=== PATIENT | female | born 1930 | race Caucasian/White ===

== ENCOUNTER 2017-02-22 21:47 | Emergency (ER) | payer OTHER, MEDICARE ==
[2017-02-22 21:53] VITALS: TEMP 97.9
[2017-02-22] MEDS ORDERED: FLUCONAZOLE 150 MG TAB PO ONE (22:23)
--- NOTE | 2017-02-22 22:23 | EDPHY ---
H & P Stated Complaint: pain with urination and unable to urinate- last void @1630 Time Seen by Provider: 02/22/17 22:05 HPI/ROS: CHIEF COMPLAINT: Urinary tract infection HISTORY OF PRESENT ILLNESS: The patient is an 87-year-old female who comes to the emergency department complaining of dysuria and urinary retention. She states that she has had dysuria for about a week and started ciprofloxacin 3 days ago. She has not had a fever or flank pain. No nausea vomiting. No diarrhea. The patient has not had any improvement in her symptoms. Today she has been able to urinate since this afternoon. She felt slightly distended and crampy. REVIEW OF SYSTEMS: Constitutional: denies: chills, fever, recent illness, recent injury EENTM: denies: blurred vision, double vision, nose congestion Respiratory: denies: cough, shortness of breath Cardiac: denies: chest pain, irregular heart rate, lightheadedness, palpitations Gastrointestinal/Abdominal: denies: abdominal pain, diarrhea, nausea, vomiting, blood streaked stools Genitourinary: See HPI Musculoskeletal: denies: joint pain, muscle pain Skin: denies: lesions, rash, jaundice, bruising Neurological: denies: headache, numbness, paresthesia, tingling, dizziness, weakness Hematologic/Lymphatic: denies: blood clots, easy bleeding, easy bruising Immunologic/allergic: denies: HIV/AIDS, transplant EXAM: GENERAL: Well-appearing, well-nourished and in no acute distress. HEAD: Atraumatic, normocephalic. EYES: Pupils equal round and reactive to light, extraocular movements intact, sclera anicteric, conjunctiva are normal. ENT: TMs normal, nares patent, oropharynx clear without exudates. Moist mucous membranes. NECK: Normal range of motion, supple without lymphadenopathy or JVD. LUNGS: Breath sounds clear to auscultation bilaterally and equal. No wheezes rales or rhonchi. HEART: Regular rate and rhythm without murmurs, rubs or gallops. ABDOMEN: Soft, nontender, normoactive bowel sounds. No guarding, no rebound. No masses appreciated. : Minor excoriated rash around urethra. Mild prolapse, fecal material near vagina BACK: No CVA tenderness, no spinal tenderness, step-offs or deformities EXTREMITIES: Normal range of motion, no pitting or edema. No clubbing or cyanosis. NEUROLOGICAL: Cranial nerves II through XII grossly intact. Normal speech, normal gait. 5/5 strength, normal movement in all extremities, normal sensation PSYCH: Normal mood, normal affect. SKIN: Warm, dry, normal turgor, no visible rashes or lesions. Source: Patient Exam Limitations: No limitations - Personal History Current Tetanus/Diphtheria Vaccine: Yes Current Tetanus Diphtheria and Acellular Pertussis (TDAP): Yes Tetanus Vaccine Date: 2011 - Medical/Surgical History Hx Asthma: No Hx Chronic Respiratory Disease: No Hx Diabetes: Yes Hx Cardiac Disease: Yes Hx Renal Disease: No Hx Cirrhosis: No Hx Alcoholism: No Hx HIV/AIDS: No Hx Splenectomy or Spleen Trauma: No Other PMH: medical- DM, HTN, HLD, osteoperosis, chronic back pain, macular degeneration. surgical- appy, LEFT Femur ORIF; LEFT TKA, B hip pain - Social History Smoking Status: Former smoker Alcohol Use: Sober Drug Use: None Constitutional: Initial Vital Signs Temperature (C) 36.6 C 02/22/17 21:49 Heart Rate 91 02/22/17 21:49 Respiratory Rate 16 02/22/17 21:49 Blood Pressure 180/93 H 02/22/17 21:49 O2 Sat (%) 94 02/22/17 21:49 O2 Delivery Mode Room Air Allergies/Adverse Reactions: levofloxacin [From Levaquin] Allergy (Verified 01/06/16 21:20) Hives Penicillins Allergy (Verified 01/06/16 21:20) Hives Home Medications: Medication Instructions Recorded Benazepril HCl [Lotensin (*)] 20 mg PO BID 11/15/13 amLODIPine BESYLATE [Norvasc 2.5 2.5 mg PO BID 11/15/13 mg (*)] metFORMIN HCL [Glucophage 500 mg 500 mg PO BIDMEAL 11/15/13 (*)] Famotidine [Pepcid 20 MG (*)] 20 mg PO DAILY 04/02/14 Marya 123 1 drop EACHEYE BID 11/05/14 Pregabalin [Lyrica 75mg (*)] 75 mg PO HS 11/05/14 Acetaminophen [Tylenol 325mg (*)] 650 mg PO Q4 PRN #0 tab 03/28/15 Flexeril 01/06/16 Losartan Potassium 01/06/16 Norvasc 01/06/16 Prozac 20 MG (RX) 01/06/16 Cephalexin [Keflex] 500 mg PO Q6H #28 cap 01/07/16 Cephalexin [Keflex] 500 mg PO TID #21 cap 02/22/17 Medical Decision Making ED Course/Re-evaluation: We discussed the lab results. The patient has a slight prolapse of her urethra. This mixed with the infection is likely causing obstruction. Will leave the Petty catheter in place until she follows up with her primary on Saturday. We discussed indications for returning to the emergency department. We also discussed hygiene. Differential Diagnosis: Partial list of the Differential diagnosis considered include but were not limited to; urinary tract infection, urethral prolapse, yeast infection and although unlikely based on the history and physical exam, I also considered kidney infection, kidney stone, trauma, abscess. I discussed these differential diagnoses and the plan with the patient as well as the usual and expected course. The patient understands that the diagnosis is provisional and that in medicine we are not always correct and that further workup is often warranted. Usual and customary warnings were given. All of the patient's questions were answered. The patient was instructed to return to the emergency department should the symptoms at all worsen or return, otherwise to followup with the physician as we discussed. - Data Points Laboratory Results: 02/22/17 22:15 Urine Color YELLOW Urine Appearance HAZY Urine pH 6.0 (5.0-7.5) Ur Specific Banks 1.013 (1.002-1.030) Urine Protein 1+ H (NEGATIVE) Urine Ketones NEGATIVE (NEGATIVE) Urine Blood 1+ H (NEGATIVE) Urine Nitrate NEGATIVE (NEGATIVE) Urine Bilirubin NEGATIVE (NEGATIVE) Urine Urobilinogen 2.0 EU H EU (0.2-1.0) Ur Leukocyte Esterase 3+ H (NEGATIVE) Urine RBC 50-182 /hpf H /hpf (0-3) Urine WBC 50-182 /hpf H /hpf (0-3) Ur Epithelial Cells NONE SEEN /lpf /lpf (NONE-1+) Urine Mucus TRACE /lpf /lpf (NONE-1+) Urine Glucose NEGATIVE (NEGATIVE) Medications Given: Discontinued Medications Fluconazole (Diflucan) 150 mg PO ONCE ONE Stop: 02/22/17 22:24 Last Admin: 02/22/17 23:10 Dose: 150 mg Ceftriaxone Sodium/Dextrose (Rocephin 1 Gm (Premix)) 50 mls @ 100 mls/hr IV EDNOW ONE PRN Reason: Protocol Stop: 02/22/17 22:50 Last Admin: 02/22/17 22:44 Dose: 50 mls Departure - Departure Disposition: Home, Routine, Self-Care Clinical Impression: Urethral prolapse, Petty catheter in place Urinary tract infection Qualifiers: Urinary tract infection type: acute cystitis Hematuria presence: without hematuria Qualified Code(s): N30.00 - Acute cystitis without hematuria Condition: Fair Instructions: Urinary Tract Infection in Women (ED), Petty Catheter Placement and Care (ED) Referrals: Rosa Capellan MD [Primary Care Provider] - 2-3 days, call for appt. Prescriptions: Cephalexin [Keflex] 500 mg PO TID #21 cap
[2017-02-22 22:42] LABS: COLOR YELLOW; LEUKOCYTE ESTERASE,URINE 3+ (NEGATIVE); MUCUS TRACE /lpf (NONE-1+); NITRITE,URINE NEGATIVE (NEGATIVE); RBC,URINE 50-182 /hpf (0-3); WBC,URINE 50-182 /hpf (0-3)
[2017-02-22 22:50] VITALS: RESP 18
[2017-02-22 23:36] VITALS: BP 156/91; PULSE 77; O2SAT 91
== END 2017-02-22 23:36 | disposition home or self-care (01) ==
DX: N30.00 Acute cystitis without hematuria (principal); N36.8 Other specified disorders of urethra
CPT/HCPCS: 96365; 99284; J0696

== ENCOUNTER → 2017-04-11 | Outpatient (CLI) | payer OTHER, MEDICARE | LOC: FIMAGING 13:44 | PROVIDERS: ATTEND Internal Medicine | DX: N64.4 Mastodynia (principal) | CPT/HCPCS: G0204 ==

== ENCOUNTER 2018-03-01 08:39 | Inpatient (IN) | payer OTHER, MEDICARE ==
--- NOTE | 2018-03-01 08:38 | EDPHY ---
H & P Time Seen by Provider: 03/01/18 08:38 HPI/ROS: CHIEF COMPLAINT: Left hip pain HISTORY OF PRESENT ILLNESS: Patient was trying to get something out of her dresser when she twisted her foot and fell around 7:00 a.m. Today. Immediate pain in the left hip, does not radiate, moderate at rest and severe with movement. Did not hit her head. No weakness or numbness in extremities and no head injury or neck pain or loss of consciousness. REVIEW OF SYSTEMS: Eye: no change in vision ENT: no sore throat Cardiac: no chest pain or syncope Pulmonary: no cough or SOB Abdomen: no vomiting, diarrhea, abdominal pain Musculoskeletal: HPI Skin: Left elbow abrasion Neuro: no headache Constitutional: no fever : no urinary symptoms A comprehensive 10 point review of systems is otherwise negative aside from elements mentioned in the history of present illness. PAST MEDICAL HISTORY: Includes diabetes, hypertension, right hip and left hip fracture previously Social history: Lives at [facility] General Appearance: Alert and conversant, cooperative. Eyes: No scleral icterus. ENT, Mouth: Normal mucous membranes. Respiratory: Normal respiratory effort, breath sounds equal, lungs are clear to auscultation. Cardiovascular: Regular rate and rhythm. Gastrointestinal: Abdomen is soft and non tender. Neurological: Alert, face symmetric, normal motor and sensory in extremities. Skin: Left elbow abrasion. Musculoskeletal: No cervical thoracic or lumbar spine tenderness to palpation. Exquisite left hip pain with rotation or axial loading, it is little bit shortened. There is a little bit of right hip discomfort with movement but normal bilateral knee ankle and foot. Psychiatric: Not agitated. Emergency Department course/MDM: Morphine 4, Zofran 4, x-rays of the left hip, plan for admission. Cervical spine cleared clinically. History is clearly mechanical fall and not syncope. 915: X-ray results reviewed with the patient including intertrochanteric left hip fracture in the setting of previous cannulated screws, her previous orthopedic surgeries all in [place]. Admission hospitalist and orthopedic consultation for options. 927:Leon for Dr. Merino, NPO, will consult for ortho. Constitutional: Initial Vital Signs Temperature (C) 36.6 C 03/01/18 08:39 Heart Rate 81 03/01/18 08:39 Respiratory Rate 16 03/01/18 08:39 Blood Pressure 169/92 H 03/01/18 08:39 O2 Sat (%) 93 03/01/18 08:39 O2 Delivery Mode Nasal Cannula O2 (L/minute) 3 Allergies/Adverse Reactions: levofloxacin [From Levaquin] Allergy (Verified 01/06/16 21:20) Hives Penicillins Allergy (Verified 01/06/16 21:20) Hives Home Medications: Medication Instructions Recorded Benazepril HCl [Lotensin (*)] 20 mg PO BID 11/15/13 amLODIPine BESYLATE [Norvasc 2.5 2.5 mg PO BID 11/15/13 mg (*)] metFORMIN HCL [Glucophage 500 mg 500 mg PO BIDMEAL 11/15/13 (*)] Famotidine [Pepcid 20 MG (*)] 20 mg PO DAILY 04/02/14 Marya 123 1 drop EACHEYE BID 11/05/14 Pregabalin [Lyrica 75mg (*)] 75 mg PO HS 11/05/14 Acetaminophen [Tylenol 325mg (*)] 650 mg PO Q4 PRN #0 tab 11/06/14 Flexeril 01/06/16 Losartan Potassium 01/06/16 Norvasc 01/06/16 Prozac 20 MG (RX) 01/06/16 Cephalexin [Keflex] 500 mg PO Q6H #28 cap 01/07/16 Cephalexin [Keflex] 500 mg PO TID #21 cap 02/22/17 Medical Decision Making - Diagnostics EKG Interpretation: 12-lead EKG interpreted by me; official reading is in trace master. My interpretation is sinus rhythm rate 72, normal intervals and no ischemic changes. Imaging Results: Left intertrochanteric hip fracture in the setting of previous cannulated screws. Imaging: I viewed and interpreted images myself Differential Diagnosis: Differential considered including but not limited to pelvic fracture, hip contusion, hip dislocation, hip fracture. Consult/Admit Bed Type: [place] [id number] - Data Points Laboratory Results: Laboratory Results 03/01/18 08:45 03/01/18 08:45 03/01/18 03/01/18 08:45 08:45 WBC 7.06 10^3/uL 10^3/uL (3.80-9.50) RBC 5.32 10^6/uL 10^6/uL (4.18-5.33) Hgb 16.4 g/dL H g/dL (12.6-16.3) Hct 47.6 % H % (38.0-47.0) MCV 89.5 fL fL (81.5-99.8) MCH 30.8 pg pg (27.9-34.1) MCHC 34.5 g/dL g/dL (32.4-36.7) RDW 13.1 % % (11.5-15.2) Plt Count 187 10^3/uL 10^3/uL (150-400) MPV 10.4 fL fL (8.7-11.7) Neut % (Auto) 75.6 % H % (39.3-74.2) Lymph % (Auto) 16.6 % % (15.0-45.0) Gladwin % (Auto) 5.5 % % (4.5-13.0) Eos % (Auto) 1.3 % % (0.6-7.6) Baso % (Auto) 0.3 % % (0.3-1.7) Nucleat RBC Rel Count 0.0 % % (0.0-0.2) Absolute Neuts (auto) 5.34 10^3/uL 10^3/uL (1.70-6.50) Absolute Lymphs (auto) 1.17 10^3/uL 10^3/uL (1.00-3.00) Absolute Monos (auto) 0.39 10^3/uL 10^3/uL (0.30-0.80) Absolute Eos (auto) 0.09 10^3/uL 10^3/uL (0.03-0.40) Absolute Basos (auto) 0.02 10^3/uL 10^3/uL (0.02-0.10) Absolute Nucleated RBC 0.00 10^3/uL 10^3/uL (0-0.01) Immature Gran % 0.7 % % (0.0-1.1) Immature Gran # 0.05 10^3/uL 10^3/uL (0.00-0.10) Sodium 134 mEq/L L mEq/L (135-145) Potassium 4.5 mEq/L mEq/L (3.3-5.0) Chloride 97 mEq/L mEq/L (97-110) Carbon Dioxide 28 mEq/l mEq/l (22-31) Anion Gap 9 mEq/L mEq/L (8-16) BUN 12 mg/dL mg/dL (7-23) Creatinine 0.6 mg/dL mg/dL (0.6-1.0) Estimated GFR > 60 Glucose 91 mg/dL mg/dL (70-100) Calcium 10.2 mg/dL mg/dL (8.5-10.4) Medications Given: Discontinued Medications Morphine Sulfate (Morphine) 4 mg IVP EDNOW ONE Stop: 03/01/18 08:49 Last Admin: 03/01/18 08:57 Dose: 4 mg Ondansetron HCl (Zofran) 4 mg IVP EDNOW ONE Stop: 03/01/18 08:49 Last Admin: 03/01/18 08:56 Dose: 4 mg Departure - Departure Disposition: [facility] Acute Clinical Impression: Closed intertrochanteric fracture of left hip Qualifiers: Encounter type: initial encounter Fracture alignment: displaced Qualified Code( s): S72.142A - Displaced intertrochanteric fracture of left femur, initial encounter for closed fracture Condition: Good Referrals: Rosa Capellan MD [Primary Care Provider] - As per Instructions
[2018-03-01] MEDS ORDERED: ONDANSETRON 4 MG/2 ML VIAL IVP ONE (08:48)
[2018-03-01 09:01] LABS: PLATELET COUNT 187 10^3/uL (150-400)
--- NOTE | 2018-03-01 09:30 | CPEKG ---
Heart Rate: 72 RR Interval: 833 P-R Interval: 156 QRSD Interval: 100 QT Interval: 404 QTC Interval: 443 P Bells: 69 QRS Bells: 59 T Wave Bells: 71 EKG Severity - NORMAL ECG - EKG Impression: SINUS RHYTHM Electronically Signed By: Alex Anne 01-Mar-2018 09:30:16
--- NOTE | 2018-03-01 10:44 | ASMTCMCOM ---
CM Note CM Note Notes: Per chart review, pt presented to the ED via EMS after having a mechanical fall in her Independent Living apartment at [facility]. Pt admitted for left femur fracture; pt has had both left and right hip fractures w/repairs in the past (those surgeries done in [place]). Spoke w/ staff at [facility] at ([phone]) and notified them of pt's admission; staff said pt does not currently receive any home assistance from them. Staff also said they called and notified pt's daughters, Treasure Odom (h:[phone], c: [phone]) and Sonia Orourke (c:[phone]), who both appear to live in the local area. Not sure if pt will have surgery as the ED RN mentioned pt had a MOST form indicating comfort measures only. CM to follow. Date Signed: 03/01/2018 10:43 AM Electronically Signed By:Danni Hankins RN
[2018-03-01] MEDS ORDERED: oxyCODONE IR 5 MG TAB PO PRN (10:59)
[2018-03-01] MEDS ORDERED: HYDROmorphONE/DILAUDID 1 MG/ML INJ IVP PRN ×2 (10:59→11:53)
[2018-03-01] MEDS ORDERED: ACETAMINOPHEN 325 MG TAB PO PRN ×2 (10:59→14:23)
--- NOTE | 2018-03-01 11:13 | PDCONSULT ---
Glass Driller Note: CHIEF COMPLAINT: Left hip pain HISTORY OF PRESENT ILLNESS: Joycelyn is a pleasant 88 yp female who initially presented to the [facility] ED earlier this morning with a left hip injury. She states she was trying to get something out of her dresser when she twisted her foot and fell around 7:00 a.m. this morning, noting immediate pain in the left hip, which she reports does not radiate, moderate at rest and severe with movement. She reports she did not hit her head. She denies any weakness or numbness in extremities and no head injury or neck pain or loss of consciousness. She states she has a significant injury history to the bilateral hips noting a DHS type fixation of the contralateral hip, as well as a screw fixation of the left hip performed in [place]. She has no additional concerns or complaints at this time. PAST MEDICAL HISTORY: This is significant for a history of diabetes, hypertension, reflux, right hip and left hip fracture previously as mentioned above. PAST SURGICAL HISTORY: This is significant for right and left hip fracture surgical repairs, including a DHS type repair on the right hip and a screw fixation of the left hip, and plating of the left femur. CURRENT MEDICATIONS: Please see full medicine reconciliation in the EMR for details. Home Medications: Medication Instructions Recorded Benazepril HCl [Lotensin (*)] 20 mg PO BID 11/15/13 amLODIPine BESYLATE [Norvasc 2.5 2.5 mg PO BID 11/15/13 mg (*)] metFORMIN HCL [Glucophage 500 mg 500 mg PO BIDMEAL 11/15/13 (*)] Famotidine [Pepcid 20 MG (*)] 20 mg PO DAILY 04/02/14 Marya 123 1 drop EACHEYE BID 11/05/14 Pregabalin [Lyrica 75mg (*)] 75 mg PO HS 11/05/14 Acetaminophen [Tylenol 325mg (*)] 650 mg PO Q4 PRN #0 tab 11/06/14 Flexeril 01/06/16 Losartan Potassium 01/06/16 Norvasc 01/06/16 Prozac 20 MG (RX) 01/06/16 Cephalexin [Keflex] 500 mg PO Q6H #28 cap 01/07/16 Cephalexin [Keflex] 500 mg PO TID #21 cap 02/22/17 Allergies/Adverse Reactions: levofloxacin [From Levaquin] Allergy (Verified 01/06/16 21:20) Hives Penicillins Allergy (Verified 01/06/16 21:20) Hives SOCIAL HISTORY: Lives at [facility] REVIEW OF SYSTEMS: Eye: no change in vision ENT: no sore throat Cardiac: no chest pain or syncope Pulmonary: no cough or SOB Abdomen: no vomiting, diarrhea, abdominal pain Musculoskeletal: HPI Skin: Left elbow abrasion Neuro: no headache Constitutional: no fever : no urinary symptoms PHYSICAL EXAM: Initial Vital Signs Temperature (C) 36.6 C 03/01/18 08:39 Heart Rate 81 03/01/18 08:39 Respiratory Rate 16 03/01/18 08:39 Blood Pressure 169/92 H 03/01/18 08:39 O2 Sat (%) 93 03/01/18 08:39 O2 Delivery Mode Nasal Cannula O2 (L/minute) 3 General Appearance: Alert and conversant, cooperative. HEENT: EOMI, PERRLA, ears and nares are patent and without discharge. OP is clear. NECK: Supple, normal ROM Respiratory: Normal respiratory effort, no increased WOB noted. Cardiovascular: Regular rate and rhythm. Gastrointestinal: Abdomen is soft and NT/ND. Neurological: Alert, face symmetric, normal motor and sensory in extremities. Skin: Left elbow abrasion. Musculoskeletal: Left hip pain with rotation or axial loading, slightly flexed and shortened position. Full ROM is not assessed d/t fracture status. Patient is intact to light touch sensation distally. She is able to move her knee, ankle, foot and toes without significant discomfort. Posterior calves are NTTP , no palpable vascular cords, negative Kathryn's bilat. Psychiatric: Not agitated, pleasant and cooperative with exam. RADIOGRAPHS: 2 views of the left hip are reviewed revealing an intertrochanteric fracture with a fracture fragment of the lesser trochanter. Present as well re three compression screws intact from a previous screw fixation of the hip, as well as a distal plate on the femur with intact hardware. No significant signs of hardware loosening are noted. ASSESSMENT: Left hip intertrochanteric fracture. PLAN: This patient's case and radiographs were discussed with Dr. Merino today, who also saw and examined the patient today. At this time, it is his recommendation to proceed with a TFN fixation of the intertrochanteric fracture , which will likely involve the removal of at least some of the distal hardware. Risks, benefits and alternatives to surgery were discussed with the patient today, and a signed informed consent was obtained. The patient will be placed on antibiotic prophylaxis, and taken to the OR today whereupon she will undergo a L hip TFN fixation. She will likely wb TTWB of the LLE following the surgery, and will be placed on VTE chemoprophylaxis as well as will receive SCDs and TEDs for VTE mechanical prophylaxis. All of the patient's questions have been answered today, and her concerns addressed. She has relayed her understanding of the current care plan and education presented today, and appears pleased with the care she has received today. It remains my pleasure to assist in the care of this patient. We will continue to follow this patient , please call with any questions/concerns at [phone].
[2018-03-01] MEDS ORDERED: BUPIVACAINE 0.25% 30 ML SDV ONE (11:31)
[2018-03-01] MEDS ORDERED: BACITRACIN 50,000 UNITS/10 ML SYR IRR ONE (11:32)
[2018-03-01] MEDS ORDERED: POLYMYXIN B SULFATE 500,000 UNIT/10 ML SYR IRR ONE (11:32)
[2018-03-01] MEDS ORDERED: EPINEPHrine 1 MG/ML INJ ONE (11:32)
[2018-03-01] MEDS ORDERED: ceFAZolin 2 GM/DEXTROSE 100 ML IV ONE (11:38)
[2018-03-01] MEDS ORDERED: ONDANSETRON DISINTEGRATING 4 MG TAB PO PRN (11:42)
[2018-03-01] MEDS ORDERED: ONDANSETRON 4 MG/2 ML VIAL IVP PRN ×2 (11:42→11:53)
[2018-03-01] MEDS ORDERED: D50W 25 GM/50 ML SYR IVP PRN (11:48)
[2018-03-01] MEDS ORDERED: ALBUTEROL 3 ML DEYVIAL IH PRN (11:53)
[2018-03-01] MEDS ORDERED: NALOXONE HCL 0.4 MG/ML INJ IVP PRN (11:53)
--- NOTE | 2018-03-01 11:55 | PDANEPAE ---
ANE History of Present Illness Left hip TFN ANE Past Medical History - Pulmonary History Hx Oxygen in Use at Home: No Hx Sleep Apnea: No Sleep Apnea Screening Result - Last Documented: Negative - Endocrine History Hx Diabetes: Yes - Chronic Pain History Chronic Pain: Yes ANE Review of Systems Review of Systems: ANE Patient History - Allergies Allergies/Adverse Reactions: levofloxacin [From Levaquin] Allergy (Verified 01/06/16 21:20) Hives Penicillins Allergy (Verified 01/06/16 21:20) Hives - Home Medications Home Medications: Benazepril HCl [Lotensin (*)] 20 mg PO BID 11/15/13 [Last Taken 11/05/14] amLODIPine BESYLATE [Norvasc 2.5 mg (*)] 2.5 mg PO BID 11/15/13 [Last Taken 5 mg] metFORMIN HCL [Glucophage 500 mg (*)] 500 mg PO BIDMEAL 11/15/13 [Last Taken ] Famotidine [Pepcid 20 MG (*)] 20 mg PO DAILY 04/02/14 [Last Taken 11/05/14] Marya 123 1 drop EACHEYE BID 11/05/14 [Last Taken Unknown] Pregabalin [Lyrica 75mg (*)] 75 mg PO HS 11/05/14 [Last Taken 11/04/14] Flexeril 01/06/16 [Last Taken Unknown] Losartan Potassium 01/06/16 [Last Taken Unknown] Norvasc 01/06/16 [Last Taken Unknown] Prozac 20 MG (RX) 01/06/16 [Last Taken Unknown] - NPO status NPO Since - Liquids (Date): 02/28/18 NPO Since - Liquids (Time): 20:00 NPO Since - Solids (Date): 02/28/18 NPO Since - Solids (Time): 20:00 - Smoking Hx Smoking Status: Former smoker ANE Labs/Vital Signs - Labs Result Diagrams: 03/01/18 08:45 03/01/18 08:45 - Vital Signs Blood Pressure: 114/70 Heart Rate: 76 Respiratory Rate: 16 O2 Sat (%): 94 Height: 170.18 cm Weight: 63.503 kg ANE Physical Exam - Airway Neck exam: FROM Mallampati Score: Class 2 - Pulmonary Pulmonary: clear to auscultation - Cardiovascular Cardiovascular: regular rate and rhythym - ASA Status ASA Status: III ANE Anesthesia Plan Anesthesia Plan: GA w LMA
[2018-03-01] MEDS ORDERED: fentaNYL 100 MCG/2 ML INJ ONE ×3 (11:59→14:52)
[2018-03-01] MEDS ORDERED: PROPOFOL 200 MG/20 ML VIAL ONE (11:59)
[2018-03-01] MEDS ORDERED: METOCLOPRAMIDE 10 MG/2 ML VIAL ONE (12:00)
[2018-03-01] MEDS ORDERED: ONDANSETRON 4 MG/2 ML VIAL ONE (12:00)
[2018-03-01] MEDS ORDERED: D50W 25 GM/50 ML VIAL IVP PRN (12:00)
--- NOTE | 2018-03-01 12:18 | GHP ---
[f rep st] HISTORY AND PHYSICAL DATE OF ADMISSION: 03/01/2018 CHIEF COMPLAINT: Fall. HISTORY OF PRESENT ILLNESS: This is an 88-year-old female who lives independently at [facility] , who presents after a fall. She was going to her dresser, twisted her foot, fell on her left hip. She had immediate pain there. She was unable to bear weight. She has sensation intact in her foot, as well as motor intact in her foot. She has a history of multiple orthopedic surgeries, including b ilateral hip fracture, status post fixation, as well as a right knee TKA. She is not having any ches t pain. Does not get any chest pain. She did not lose consciousness or hit her head when she fell. PAST MEDICAL/SURGICAL HISTORY: 1. Diabetes mellitus. 2. Hypertension. 3. History of bilateral hip fractures. 4. Right TKA. MEDICATIONS: Please see medication reconciliation. ALLERGIES: Levaquin and penicillin. FAMILY HISTORY: Reviewed and noncontributory. SOCIAL HISTORY: She drinks weekly. She does not smoke. She lives at [facility]. REVIEW OF SYSTEMS: A 10-point review of systems is conducted and is negative, except per HPI. PHYSICAL EXAM: VITAL SIGNS: Blood pressure 114/70, heart rate 76, respiration rate 16, saturating 9 4% on room air, temperature 36.6. GENERAL: The patient is a pleasant female who is resting comforta jasmin, in no acute distress. HEENT: Normocephalic, atraumatic. CARDIOVASCULAR: Regular rate and rhy thm. No murmurs, rubs, or gallops. No elevated JVD. No lower extremity edema. PULMONARY: Lungs a re clear to auscultation bilaterally. ABDOMEN: Soft, nontender, nondistended. SKIN: No rash. : Exam shows no Petty. NEUROLOGIC: Exam shows her to be alert and oriented x3. She has a nonfocal neurologic exam. PSYCHIATRIC: Exam shows a normal mood and affect. EXTREMITIES: Exam shows her le ft extremity to be mildly externally rotated. She has motor and sensation intact in her left foot. LABS: Hemoglobin is 16. White count is 7. Sodium 134. Creatinine 0.6. DATA: 1. Discussed this with Leon Salomon. She will be taken to the operating room soon. 2. EKG, which I personally viewed and interpreted, shows sinus rhythm. Normal EKG. 3. Hip x-ray shows a left hip fracture. IMPRESSION/PLAN: 1. Hip fracture: Dr. Merino plans to take her to the OR today for an open reduction and internal fixa tion. This is appropriate. She is somewhat deconditioned at baseline, although I think she has a re asonable risk given the poorer alternative of doing nothing. EKG is normal. She does not have an ec hocardiogram in our system. Her chest x-ray shows possibility of mild fluid overload. However, she is breathing comfortably on room air. Will watch for volume overload postoperatively. She will need anticoagulation, would recommend low-dose Lovenox. Will wait on starting this pending her surgical outcome. 2. Diabetes mellitus: She is on oral medications and diet controlled. We will follow blood sugars while she is here. Restart metformin when appropriate. 3. Hypertension: Will restart her antihypertensives if she needs them postoperatively. 4. Pain control: She has different IV, as well as p.o. narcotic options. 5. Fall: This is mechanical in nature. I do not think we need to do any additional workup on this. She will see PT and OT. 6. Code status: She is do not resuscitate. I confirmed this with her, and she has a MOLST form. /[id number]/MODL
[2018-03-01] MEDS ORDERED: ePHEDrine SULFATE 25 MG/5 ML SYR ONE (14:06)
[2018-03-01] MEDS ORDERED: TEARS/DEXTRAN 70/HYPROMELLOSE 15 ML OPHT.BTL EACHEYE PRN (14:23)
[2018-03-01] MEDS ORDERED: FAMOTIDINE 20 MG TAB PO PRN (14:23)
[2018-03-01] MEDS ORDERED: PHENYLEPHRINE HCL 100 MCG/ML SYR ONE (14:32)
--- NOTE | 2018-03-01 14:35 | POSTOPPROG ---
Post Op Note Date of Operation: 03/01/18 Surgeon: Jeff Merino Anesthesia: LMA Pre-op Diagnosis: Left Intertrochantaric hip fracture, with prior hardware in area Post-op Diagnosis: Same Procedure: TFN left hip, HWR left hip (screws) and HWR Left Femur (screws) Findings: Synthes TFN 13mm x 320mm Inf/Abcess present in the surg proc area at time of surgery?: No Complications: None
[2018-03-01] MEDS ORDERED: HYDROmorphONE/DILAUDID 2 MG/ML INJ ONE (14:52)
[2018-03-01] MEDS: fentaNYL 100 MCG/2 ML INJ IVP PRN ×2 (14:55→15:01)
--- NOTE | 2018-03-01 14:57 | SOAPPROG ---
SOAP Progress Note Assessment/Plan: Assessment/Plan: L intertrochanteric hip fracture s/p TFN fixation of L hip with hardware removal performed by Dr. Merino, POD#0 -Cont PT/OT, pt will remain TTWB of her LLE -Cont current pain regimen, encourage PO as tolerated -Cont post op abx as ordered -Ok to d/c cath when pt can mobilize -Cont SCDs and TEDs for VTE mechanical prophylaxis -Pt will begin Lovenox 40mg qday for VTE chemoprophylaxis -Pt will need likely higher level of SNF on discharge d/t TTWB status -Please call with any questions/concerns, will cont to follow 03/01/18 14:54 Subjective: Pt transported to PACU in stable condition Objective: Vital Signs Temp Pulse Resp BP Pulse Ox 36.3 C 80 20 77/32 L 92 03/01/18 14:39 03/01/18 14:39 03/01/18 14:39 03/01/18 14:39 03/01/18 14:39 02/28/18 03/01/18 03/02/18 05:59 05:59 05:59 Intake Total 200 Output Total 0 Balance 200 ICD10 Worksheet Patient Problems: Problems Problem Status Onset Closed intertrochanteric fracture of left hip Acute Back pain Acute Petty catheter in place Acute Urethral prolapse Acute Urinary tract infection Acute
[2018-03-01] MEDS: HYDROmorphONE/DILAUDID 2 MG/ML INJ IVP PRN ×2 (15:25→15:37)
--- NOTE | 2018-03-01 15:25 | POSTANESTH ---
Post Anesthetic Evaluation Cardiovascular Status: Normal, Stable Respiratory Status: Normal, Stable Level of Consciousness/Mental Status: Can Participate in Eval, Alert and Oriented Pain Control: Adequate, Prn Tx Ordered Nausea/Vomiting Control: Adequate, Prn Tx Ordered Complications Possibly Related to Anesthesia: None Noted
--- NOTE | 2018-03-01 15:28 | GOP ---
[f rep st] OPERATIVE REPORT DATE OF OPERATION: 03/01/2018 SURGEON: Jeff Merino MD PREOPERATIVE DIAGNOSIS: 1. Left intertrochanteric hip fracture. 2. Retained femoral neck fracture hardware. 3. Retained supracondylar distal femur fracture hardware. POSTOPERATIVE DIAGNOSIS: 1. Left intertrochanteric hip fracture. 2. Retained femoral neck fracture hardware. 3. Retained supracondylar distal femur fracture hardware. PROCEDURE PERFORMED: 1. Removal of deep hardware, femoral neck. 2. Removal of deep hardware, femoral shaft. 3. Placement of trochanteric femoral nail. FINDINGS: A Synthes TFN was utilized. This was a 13 mm wide by 320 mm long nail. This was placed i n the dynamic position proximally and dynamically locked distally. The patient previously had a femo ral neck fracture treated with cannulated screw fixation that had to be removed in order for placemen t of the TFN. In addition, she had a supracondylar femur fracture above a total knee replacement, tr eated with plate and screw fixation. I had to remove those screws as well. I was able to achieve an interlock distally through the plate and through the nail. DESCRIPTION OF PROCEDURE: After routinely checking the patient's identification and consent, and the successful induction of LMA general anesthetic, the patient was positioned on the fracture table in the prone position. A Petty catheter was placed to continuous bag drainage, and the patient received 2 g of Ancef intravenously. The patient's left hip and thigh were prepped and draped in the usual s tandard fashion. A surgical time-out was completed. I utilized the access point from her prior enrique ulated screw fixation of her hip and carried this skin incision sharply through the skin, spread blun tly through the subcutaneous layer. I then dissected down to the IT band, which I incised sharply. I the vastus lateralis musculature and dissected down to the vastus ridge, where I identifi ed the 3 screws. I was able to unscrew these screws without too much difficulty. There were no reve rse cutting threads on these screws, so they did have to be pulled upon with removal, which I was abl e to do with a pair of pliers and a screwdriver. Once this was removed, I irrigated this wound, but left this wound open. I now used the previous incision from her supracondylar femur fracture fixatio n and carried this sharply through the skin, and then bluntly through the subcutaneous layer. I inci sed the IT band, and then, beneath this, the remaining fibers of the vastus lateralis were with a hot knife. The plate was exposed. With the plate satisfactorily exposed, I unscrewed the pro ximal 4 screws and removed these completely. I then placed the measuring device and felt that I woul d be able to pass a 320 mm nail into the femoral canal without impediment at this point. As such, a longitudinal incision just approximately a handbreadth above the greater trochanter was carried sharp ly through the skin. I carried this bluntly through the subcutaneous layer and incised the muscular fascia sharply over the tensor fascia joe. I dissected with my finger to the tip of the greater tro chanter. I used a guidewire to gain a starting position, and then the proximal reamer over this to c reate a starting position. I reamed with a 13 mm reamer, which easily passed the length of the femur . As such, the nail was assembled, and I passed the nail down the femoral canal. When it was approp riately positioned when viewed with the FluoroScan unit, I passed the oblique wire through the latera l shaft and through the nail, and then into the femoral neck and head. My 1st pass in the lateral pl ane was anterior, and I was able to improve this and created a second pass where it was centralized i n the femoral head. Satisfied with this, this was over-reamed on the lateral cortex. Only as much a s 3 screws had been removed from her femoral head previously. I then advanced the femoral neck and h ead component. I locked this to the nail proximally and then unscrewed this half a turn to dynamize this. The insertion apparatuses were removed. I then examined the femur distally. The nail was ant erior to the position of the plate that had been applied previously. As such, I then made a cutdown incision anteriorly on the distal femur and placed a screw directly in the femoral shaft. I used the tip of the screw to push the nail posteriorly until it was lined up. There was adequate lineup thro ugh the plate to the dynamic position on the distal interlocking screw. This wound was already opene d. I drilled and then advanced the screw through the plate, through the lateral cortex of the femur, through the nail, and through the medial cortex of the femur. Once this was completed, I irrigated all wounds thoroughly. I closed the vastus lateralis as an independent layer, then closed the IT ban d distally, and then proximally, and then at the nail insertion site. I closed the subcutaneous laye r with 2-0 and 0 Vicryl, and then the skin with surgical prudencio. A sterile bulky dressing was appli ed over all wounds, which was immediately preceded by instillation of 30 cc of 0.25% Marcaine plus ep inephrine for postoperative comfort. The patient was from the fracture table, reversed fro m anesthetic, and extubated. She was transferred to the recovery room in excellent condition. There were no complications. /[id number]/MODL
--- NOTE | 2018-03-01 16:12 | SOAPPROG ---
SOAP Progress Note Assessment/Plan: Assessment:Post op films reviewed. Hardware in good position, fracture reduced. Plan: 03/01/18 16:08 Objective: Vital Signs Temp Pulse Resp BP Pulse Ox 36.4 C 84 14 113/53 L 95 03/01/18 15:54 03/01/18 15:54 03/01/18 15:54 03/01/18 15:54 03/01/18 15:54 02/28/18 03/01/18 03/02/18 05:59 05:59 05:59 Intake Total 1900 Output Total 150 Balance 1750 ICD10 Worksheet Patient Problems: Problems Problem Status Onset Closed intertrochanteric fracture of left hip Acute Back pain Acute Petty catheter in place Acute Urethral prolapse Acute Urinary tract infection Acute
--- NOTE | 2018-03-01 18:01 | PDMN ---
Medical Necessity Medical necessity: Pt meets IP criteria per MD; est los >2 mn for eval/tx of L hip fx s/p fall; admit for Ortho consult, surgical intervention, pain management , IVFs & therapies; comorbid advanced age, diabetes, HTN; per H&P & order
[2018-03-01] MEDS: FLUoxetine 20 MG CAP PO SCH (21:16)
[2018-03-01] MEDS: PREGABALIN 100 MG CAP PO SCH (21:16)
[2018-03-01] MEDS: HYDROCODONE/APAP 5/325 TAB PO PRN (21:25)
[2018-03-01] MEDS ORDERED: NS 1,000 ML IV SCH (23:45)
[2018-03-01] MEDS ORDERED: NS 250 ML IV ONE (23:59)
[2018-03-02] MEDS: HYDROCODONE/APAP 5/325 TAB PO PRN ×5 (00:13→20:51)
[2018-03-02 05:49] LABS: PLATELET COUNT 145 10^3/uL (150-400)
[2018-03-02] MEDS: ENOXAPARIN 40 MG/0.4 ML SYR SC SCH (08:05)
[2018-03-02] MEDS ORDERED: D50W 25 GM/50 ML SYR IVP PRN (10:57)
--- NOTE | 2018-03-02 10:58 | HOSPPROG ---
Hospitalist Progress Note Assessment/Plan: # L hip fx s/p TFN POD#1 - TDWB per ortho - cont pain control, preferably PO # R knee pain - XR ordered # hypoNa - send urine lytes - fluid restrict - follow # ABLA, expected d/t surgery - follow hgb tomorrow # hypotension - s/p fluid bolus with improvement - follow, hold anti-hypertensives # DM2 - slightly elevated glucs - add low dose SSI prn - hold metformin Subjective: s/p surgery yesterday; c/o R knee pain; no CP or SOB Objective: Vital Signs Temp Pulse Resp BP Pulse Ox 36.7 C 76 14 100/58 L 94 03/02/18 07:25 03/02/18 07:25 03/02/18 07:25 03/02/18 07:25 03/02/18 07:25 Laboratory Results 03/02/18 04:35 03/02/18 04:35 03/01/18 03/02/18 03/03/18 05:59 05:59 05:59 Intake Total 4750 384 Output Total 150 Balance 4600 384 chart reviewed fluoro reviewed discussed with Leon Guan - Physical Exam Constitutional: no apparent distress, appears nourished Cardiovascular: regular rate and rhythym, no murmur, rub, or gallop Respiratory: no respiratory distress, no rales or rhonchi, clear to auscultation Gastrointestinal: soft, non-tender abdomen, no palpable masses, No guarding, No rebound, No distension ICD10 Worksheet Patient Problems: Problems Problem Status Onset Back pain Acute Urinary tract infection Acute Urethral prolapse Acute Petty catheter in place Acute Closed intertrochanteric fracture of left hip Acute
--- NOTE | 2018-03-02 12:06 | SOAPPROG ---
SOAP Progress Note Assessment/Plan: Assessment/Plan: L intertrochanteric hip fracture s/p TFN fixation of L hip with hardware removal performed by Dr. Merino, POD#1 -Cont PT/OT, pt will remain TTWB of her LLE -Cont current pain regimen, encourage PO as tolerated -Cont SCDs and TEDs for VTE mechanical prophylaxis -Cont Lovenox 40mg qday for VTE chemoprophylaxis -Pt will need likely higher level of SNF on discharge d/t TTWB status -Please call with any questions/concerns, will cont to follow Subjective: Pt seen at bedside. No complaints of significant pain at this time in the left lower extremity. The patient does report some right knee pain, slightly increased since yesterday. She does note intermittent pain in the right hip, and states she has had corticosteroid injections into the knee for osteoarthritis related inflammation. She otherwise denies any nnio, f/c/n/v, cp, sob, abd pain, new onset n/t or bilat posterior calf pain. She notes she has not yet been out of bed. She is tolerating her diet and medications well. She has no additional concerns or complaints at this time. Objective: Vital Signs Temp Pulse Resp BP Pulse Ox 36.7 C 76 14 100/58 L 94 03/02/18 07:25 03/02/18 07:25 03/02/18 07:25 03/02/18 07:25 03/02/18 07:25 Laboratory Results 03/02/18 04:35 03/02/18 04:35 03/01/18 03/02/18 03/03/18 05:59 05:59 05:59 Intake Total 4750 584 Output Total 150 300 Balance 4600 284 Pt seen at bedside, A&Ox3, appropriate mood and affect, pleasant and cooperative with exam. Exam of the R knee reveals palpable osteophytes on the medial aspect. Pt has mild medial and lateral joint line tenderness. Pt is somewhat guarded,but has good endpoint with ligamentous stressing anterior/ posterior, as well as with varus/valgus stressing. Negative Isha's. Negative McMurrays. Slight crepitus noted with resisted knee extension. Pt has in intact extensor mechanism. Exam of the LLE reveals an intact cameron bandage over the thigh, covering postoperative dressings, which are dry. No significant surrounding erythema, calor, discharge or induration noted. Thigh compartment is supple. Pt is slightly apprehensive to move her leg but moves it well. SCDs and TEDs are in place bilaterally. Posterior calves are NTTP, no palpable vascular cords, negative Kathryn's bilat. DNVI BLE. ICD10 Worksheet Patient Problems: Problems Problem Status Onset Closed intertrochanteric fracture of left hip Acute Back pain Acute Petty catheter in place Acute Urethral prolapse Acute Urinary tract infection Acute
[2018-03-02] MEDS: INSULIN LISPRO 100 UNIT/ML SC SCH ×2 (13:03→17:53)
[2018-03-02] MEDS ORDERED: NS 1,000 ML IV SCH (17:15)
[2018-03-02] MEDS: PREGABALIN 100 MG CAP PO SCH (20:50)
[2018-03-02] MEDS: FLUoxetine 20 MG CAP PO SCH (20:51)
[2018-03-03] MEDS: HYDROCODONE/APAP 5/325 TAB PO PRN (04:27)
--- NOTE | 2018-03-03 06:43 | SOAPPROG ---
SOAP Progress Note Assessment/Plan: Assessment/Plan: L intertrochanteric hip fracture s/p TFN fixation of L hip with hardware removal performed by Dr. Merino, POD#2 -Cont PT/OT, pt will remain TTWB of her LLE -Cont current pain regimen, encourage PO as tolerated -Cont SCDs and TEDs for VTE mechanical prophylaxis -Cont Lovenox 40mg qday for VTE chemoprophylaxis -Pt will need likely higher level of SNF on discharge d/t TTWB status -D/c criteria w/ PT/OT approval and medicine approval, likely tomorrow earliest -Please call with any questions/concerns, will cont to follow 03/03/18 12:22 Subjective: Pt seen at bedside. No complaints of significant pain at this time in the left lower extremity, but does state some increased pain overnight. The patient does report some right knee pain, slightly improved since yesterday. She otherwise denies any nino, f/c/n/v, cp, sob, abd pain, new onset n/t or bilat posterior calf pain. She is tolerating her diet and medications well. She has no additional concerns or complaints at this time. Objective: Vital Signs Temp Pulse Resp BP Pulse Ox 38.2 C 87 16 148/64 H 95 03/03/18 04:25 03/03/18 04:16 03/03/18 04:16 03/03/18 04:16 03/03/18 04:16 Laboratory Results 03/03/18 05:35 03/03/18 05:35 03/02/18 03/03/18 03/04/18 05:59 05:59 05:59 Intake Total 4750 2534 Output Total 150 900 Balance 4600 1634 Pt seen at bedside, A&Ox3, appropriate mood and affect, pleasant and cooperative with exam. Exam of the LLE reveals an intact cameron bandage over the thigh, covering postoperative dressings, which are dry. No significant surrounding erythema, calor, discharge or induration noted. Thigh compartment is supple. Pt is slightly apprehensive to move her leg but moves it well. SCDs and TEDs are in place bilaterally. Posterior calves are NTTP, no palpable vascular cords, negative Kathryn's bilat. DNVI BLE. ICD10 Worksheet Patient Problems: Problems Problem Status Onset Closed intertrochanteric fracture of left hip Acute Back pain Acute Petty catheter in place Acute Urethral prolapse Acute Urinary tract infection Acute
[2018-03-03] MEDS ORDERED: LACTULOSE 20 GM/30 ML UDCUP PO PRN (07:27)
[2018-03-03] MEDS ORDERED: BISACODYL 10 MG SUPP PR PRN (07:27)
[2018-03-03] MEDS ORDERED: MAGNESIUM HYDROXIDE 30 ML UDCUP PO PRN (07:27)
[2018-03-03] MEDS ORDERED: POLYETHYLENE GLYCOL 3350 17 GM PKT PO PRN (07:27)
--- NOTE | 2018-03-03 08:52 | HOSPPROG ---
Hospitalist Progress Note Assessment/Plan: 88F with fall, L hip fracture s/p TFN. Fever last night. # L hip fx s/p TFN POD#2 - TDWB per ortho - cont pain control, preferably PO # fever - CXR - diffuse opacities, no clear consolidation - check UA, BCx, resp viral pcr, CBC; possibly atelectasis # R knee pain d/t DJD - XR without fracture # hypoNa, hypovolemic - improved with NS; stop NS today given CXR with possible vol overload # ABLA, expected d/t surgery - follow hgb tomorrow # hypotension - much improved with IVF # DM2 - glucs better - cont low dose SSI - hold metformin Subjective: fever last night, had sweats this am; occasional cough; urinary incontinence that is unchanged Objective: Vital Signs Temp Pulse Resp BP Pulse Ox 36.8 C 83 15 146/67 H 96 03/03/18 07:37 03/03/18 07:37 03/03/18 07:37 03/03/18 07:37 03/03/18 07:37 Laboratory Results 03/03/18 05:35 03/03/18 05:35 03/02/18 03/03/18 03/04/18 05:59 05:59 05:59 Intake Total 4750 2534 Output Total 150 900 Balance 4600 1634 CXR personally reviewed discussed with Leon Guan - Physical Exam Constitutional: no apparent distress, appears nourished Cardiovascular: regular rate and rhythym, no murmur, rub, or gallop Respiratory: no respiratory distress, no rales or rhonchi, clear to auscultation Gastrointestinal: normoactive bowel sounds, soft, non-tender abdomen, no palpable masses ICD10 Worksheet Patient Problems: Problems Problem Status Onset Back pain Acute Urinary tract infection Acute Urethral prolapse Acute Petty catheter in place Acute Closed intertrochanteric fracture of left hip Acute
[2018-03-03] MEDS: INSULIN LISPRO 100 UNIT/ML SC SCH ×3 (08:53→17:17)
[2018-03-03 10:07] LABS: PLATELET COUNT 109 10^3/uL (150-400)
[2018-03-03] MEDS: ENOXAPARIN 40 MG/0.4 ML SYR SC SCH (10:28)
[2018-03-03] MEDS: SENNOSIDES/DOCUSATE SODIUM TAB PO SCH ×2 (10:28→20:33)
--- NOTE | 2018-03-03 15:45 | ASMTCMCOM ---
CM Note CM Note Notes: PT/OT recommending SNF d/c. [facility] referral to [facility]. Pt will not be able to return to her [place] at until she completes rehab. CM will continue to follow. Date Signed: 03/03/2018 03:44 PM Electronically Signed By:NELSON Brewer
[2018-03-03] MEDS: OLANZapine 2.5 MG TAB PO SCH (20:33)
[2018-03-03] MEDS: FLUoxetine 20 MG CAP PO SCH (20:33)
[2018-03-03] MEDS: PREGABALIN 100 MG CAP PO SCH (20:33)
[2018-03-03] MEDS ORDERED: OLANZapine DISINTEGR 5 MG TAB PO SCH (21:00)
--- NOTE | 2018-03-04 08:25 | SOAPPROG ---
SOAP Progress Note Assessment/Plan: Assessment:POD 3 Doing Fine. Pain control good. Plan:Pain Control PT/OT - mobilize DVT prophylaxis D/C planning - anticipate SNF, possible Rehab. 03/01/18 16:08 03/04/18 08:23 Subjective: Slept OK, hurts to move and walk. Objective: Vital Signs Temp Pulse Resp BP Pulse Ox 36.9 C 74 16 134/54 H 100 03/04/18 07:37 03/04/18 07:37 03/04/18 07:37 03/04/18 07:37 03/04/18 07:37 Microbiology 03/03/18 09:13 Respiratory Panel (PCR) - Final Nasal, Sinus - Anaerobic Tube/Swab No Organism Detected Laboratory Results 03/04/18 05:15 03/04/18 05:15 03/03/18 03/04/18 03/05/18 05:59 05:59 05:59 Intake Total 2534 1200 Output Total 900 300 Balance 1634 900 AF VSS CSM I B LE Calves NT Wounds CDI, Dressings dry ICD10 Worksheet Patient Problems: Problems Problem Status Onset Closed intertrochanteric fracture of left hip Acute Back pain Acute Petty catheter in place Acute Urethral prolapse Acute Urinary tract infection Acute
--- NOTE | 2018-03-04 08:26 | HOSPPROG ---
Hospitalist Progress Note Assessment/Plan: 88F with fall, L hip fracture s/p TFN. Course c/b fever two nights ago and delirium yesterday. # L hip fx s/p TFN POD#3 - TDWB per ortho - cont pain control, preferably PO; sched apap; celebrex started - still very debilitated and weak # acute encephalopathy - hospital delirium and UTI contributing - zyprexa at night in addition to non-pharm measures; minimize narcotics if possible # UTI/fever - rocephin; UCx NGTD # R knee pain d/t DJD - XR without fracture # hypoNa, hypovolemic - follow again tomorrow; may need more IVF # ABLA, expected d/t surgery - follow hgb tomorrow # hypotension - much improved with IVF - holding home anti-hypertensives # DM2 - glucs better - cont low dose SSI - hold metformin # dispo - [facility] SNF Subjective: confused yesterday, had visual hallucinations Objective: Vital Signs Temp Pulse Resp BP Pulse Ox 36.9 C 74 16 134/54 H 100 03/04/18 07:37 03/04/18 07:37 03/04/18 07:37 03/04/18 07:37 03/04/18 07:37 Microbiology 03/03/18 09:13 Respiratory Panel (PCR) - Final Nasal, Sinus - Anaerobic Tube/Swab No Organism Detected Laboratory Results 03/04/18 05:15 03/04/18 05:15 03/03/18 03/04/18 03/05/18 05:59 05:59 05:59 Intake Total 2534 1200 Output Total 900 300 Balance 1634 900 high risk with acute encephalopathy - Physical Exam Constitutional: no apparent distress, appears nourished Cardiovascular: regular rate and rhythym, no murmur, rub, or gallop Respiratory: no respiratory distress, no rales or rhonchi, clear to auscultation Gastrointestinal: soft, non-tender abdomen, no palpable masses, No guarding, No rebound ICD10 Worksheet Patient Problems: Problems Problem Status Onset Back pain Acute Urinary tract infection Acute Urethral prolapse Acute Petty catheter in place Acute Closed intertrochanteric fracture of left hip Acute
[2018-03-04] MEDS: INSULIN LISPRO 100 UNIT/ML SC SCH ×3 (09:33→17:38)
[2018-03-04] MEDS: ACETAMINOPHEN 325 MG TAB PO SCH ×3 (09:39→20:33)
[2018-03-04] MEDS: ENOXAPARIN 40 MG/0.4 ML SYR SC SCH (09:40)
[2018-03-04] MEDS: SENNOSIDES/DOCUSATE SODIUM TAB PO SCH ×2 (09:40→20:31)
--- NOTE | 2018-03-04 15:40 | ASMTCMCOM ---
CM Note CM Note Notes: By this afternoon Ramona with [facility] confirms there will be a SNF bed for pt. Pt PAS[facility] in process, voicemail left for dghtr as pt is on psychiatric medication pt still experiencing confusion/hallucinations. CM to follow. D/c plan of care: [facility] Date Signed: 03/04/2018 03:40 PM Electronically Signed By:NELSON Jose
[2018-03-04] MEDS: FLUoxetine 20 MG CAP PO SCH (20:31)
[2018-03-04] MEDS: OLANZapine 2.5 MG TAB PO SCH (20:32)
[2018-03-04] MEDS: PREGABALIN 100 MG CAP PO SCH (20:33)
[2018-03-05] MEDS ORDERED: hydrALAZINE 10 MG TAB PO PRN (01:14)
[2018-03-05 05:51] LABS: PLATELET COUNT 121 10^3/uL (150-400)
[2018-03-05] MEDS: INSULIN LISPRO 100 UNIT/ML SC SCH ×2 (08:28→13:11)
[2018-03-05] MEDS: ACETAMINOPHEN 325 MG TAB PO SCH (08:59)
[2018-03-05] MEDS: SENNOSIDES/DOCUSATE SODIUM TAB PO SCH (09:00)
[2018-03-05] MEDS: ENOXAPARIN 40 MG/0.4 ML SYR SC SCH (09:01)
[2018-03-05] MEDS ORDERED: LOSARTAN POTASSIUM 50 MG TAB PO SCH (10:15)
--- NOTE | 2018-03-05 10:20 | PDIAF ---
- Diagnosis Diagnosis: hip fracture, UTI Code Status: Do Not Resuscitate - Medication Management Discharge Medications: Medications to Continue on Transfer Acetaminophen [Tylenol 325mg (*)] 650 mg PO Q4 PRN 03/01/18 [Last Taken Unknown] FLUoxetine [Prozac 20 MG (*)] 20 mg PO HS 03/01/18 [Last Taken 02/28/18] Famotidine [Pepcid 20 MG (*)] 20 mg PO DAILY PRN 03/01/18 [Last Taken 02/28/18] Losartan Potassium [Cozaar 50 mg (*)] 50 mg PO BID 03/01/18 [Last Taken 02/28/18 ] Metformin HCl [Fortamet] 500 mg PO BID 03/01/18 [Last Taken 02/28/18] Pregabalin [Lyrica 100mg (*)] 100 mg PO HS 03/01/18 [Last Taken 02/28/18] Tears/Dextran 70/Hypromellose [Natural Balance Tears (*)] 1 drop EACHEYE Q2 PRN 03/01/18 [Last Taken 02/28/18] amLODIPine BESYLATE [Norvasc 2.5 mg (*)] 2.5 mg PO BID 03/01/18 [Last Taken ] Cephalexin [Keflex (*)] 500 mg PO BID #8 cap 03/05/18 [Last Taken Unknown] Enoxaparin [Lovenox 40 MG (*)] 40 mg SC DAILY #10 syr 03/05/18 [Last Taken Unknown] traMADol HCL [Ultram] 50 mg PO Q6 PRN #20 tablet 03/05/18 [Last Taken Unknown] Passenger Interline Clerk Antibiotic Stop Date: 03/09/18 (stop date for Keflex) Additional Medication Instructions: Please contact [facility] for final urine culture Discharge Medications: Refer to the Discharge Home Medication list for PRN reason. - Orders Services needed: Physical Therapy, Occupational Therapy Isolation Type: None Diet Recommendation: no restrictions on diet Additional Instructions: Orthopedics: 1. Patient is to remain toe touch weight bearing of her left lower extremity at all times, with no more willow 50# on the operative side. She is to keep her surgical incision site, clean and dry at all times, and to cover for showering purposes. 2. The patient is to watch for signs of infection at his surgical site, including, but not limited to: increased redness/swelling, significant increases in pain, warmth or for constitutional symptoms such as fevers, chills , nausea or vomiting. He is encouraged to contact the office immediately should any of these occur. 4. The patient is to use ice for relief of mild swelling and pain. 5. The patient is to take Lovenox 40mg qday for 14 days postoperatively, followed by 14 days of 325 mg Aspirin, once daily with meals, to help prevent blood clots. 6. The patient is to use her prescription pain medication as directed, and to transition to over the counter medication as soon as possible. 7. The patient is to avoid smoking as this can delay bone healing. 8. The patient is to follow up with Dr. Merino 6 weeks postoperatively for repeat xrays and examination. She is encouraged to contact the office to schedule this appointment. 9. The patient should have her prudencio removed from her surgical incisions 10- 14 days postoperatively. If her residential facility is unable or unwilling to perform this procedure, please contact our office for staple removal. 10. The patient is encouraged to contact the office with any questions or concerns at [phone]. - Follow Up Care Current Providers and Referrals: Rosa Capellan MD [Primary Care Provider] - As per Instructions Jeff Merino MD [Medical Doctor] - (The patient is to follow up with Dr. Merino 6 weeks postoperatively, or sooner with any additional concerns or complaints. If her SNF is not able to remove her prudencio, please contact the office 10-14 days postoperatively for staple removal.)
[2018-03-05] MEDS ORDERED: metFORMIN HCL 500 MG TAB PO SCH (10:30)
[2018-03-05 12:11] VITALS: BP 122/59
[2018-03-05] MEDS ORDERED: traMADol 50 MG TAB PO PRN (12:49)
--- NOTE | 2018-03-05 13:59 | ASMTCMCOM ---
CM Note CM Note Notes: Pt medically stable for d/c to [facility], orders sent in [employer]. KONSTANTIN Reveles to call report. KIESHA griffith scheduled for 1330 as pt is max assist, copy of PCS in chart. Pt dghtr Treasure updated. Date Signed: 03/05/2018 01:59 PM Electronically Signed By:NELSON Jose
--- NOTE | 2018-03-05 14:00 | ASMTLACE ---
LACE Length of stay for Answers: 4-6 days current admission Acuity / Level of Answers: Yes Care: Did the patient have an inpatient admission? Comorbidities - select Answers: Diabetes (uncontrolled or all that apply controlled) History of falls # of Emergency department Answers: 1-2 visits in the last 6 months Score: 12 Date Signed: 03/05/2018 02:00 PM Electronically Signed By:NELSON Jose
--- NOTE | 2018-03-05 14:00 | ASDISCHSUM ---
Discharge Information Plan Status:SNF Medically Cleared to Leave: Discharge Date:03/05/2018 01:49 PM D/C Disposition:Detention Facility ADT D/C Disposition:Detention Facility Projected Discharge Date:03/04/2018 11:00 AM Transportation at D/C:ALS/BLS Discharge Delay Reason: Follow-Up Date:03/04/2018 11:00 AM Discharge Slot: Final Diagnosis: Placement Information Referral Type:*Half-Way/SNF Referral ID:[id number] Provider Name:[facility] Address 1:[address] Address 2: City:[place] Selection Factors: State:[place] Patient Contact Information Contact Name:NEGIN Relationship:Daughter Address: City:[place] Alternate Phone: State/Zip Code:[place] Email: Financial Information Financial Class:Medicare Primary Plan Desc:MEDICARE INPATIENT Primary Plan Number:[id number] Secondary Plan Desc:[employer]ARP/MDR SUPPLEMENT Secondary Plan Number:[id number] Assessment Information [facility] CM Progress Note CM Note CM Note Notes: Per chart review, pt presented to the ED via EMS after having a mechanical fall in her Independent Living apartment at [facility]. Pt admitted for left femur fracture; pt has had both left and right hip fractures w/repairs in the past (those surgeries done in [place]). Spoke w/ staff at [facility] at ([phone]) and notified them of pt's admission; staff said pt does not currently receive any home assistance from them. Staff also said they called and notified pt's daughters, Treasure Odom (h:[phone], c: [phone]) and Sonia Haven (c:[phone]), who both appear to live in the local area. Not sure if pt will have surgery as the ED RN mentioned pt had a MOST form indicating comfort measures only. CM to follow. Date Signed: 03/01/2018 10:43 AM Electronically Signed By:Danni Hankins RN [facility] CM Progress Note CM Note CM Note Notes: PT/OT recommending SNF d/c. [facility] referral to [facility]. Pt will not be able to return to her [place] at until she completes rehab. CM will continue to follow. Date Signed: 03/03/2018 03:44 PM Electronically Signed By:NELSON Brewer [facility] CM Progress Note CM Note CM Note Notes: By this afternoon Ramona with [facility] confirms there will be a SNF bed for pt. Pt PASRR in process, voicemail left for dghtr as pt is on psychiatric medication pt still experiencing confusion/hallucinations. CM to follow. D/c plan of care: [facility] Date Signed: 03/04/2018 03:40 PM Electronically Signed By:NELSON Jose [facility] CM Progress Note CM Note CM Note Notes: Pt medically stable for d/c to [facility], orders sent in [email or web address]. KONSTANTIN Reveles to call report. KIESHA griffith scheduled for 1330 as pt is max assist, copy of PCS in chart. Pt dghtr Treasure updated. 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
--- NOTE | 2018-03-05 18:12 | GDS ---
[f rep st] DISCHARGE SUMMARY DISCHARGE DIAGNOSES: 1. Left hip fracture. 2. Acute metabolic encephalopathy. 3. Urinary tract infection. 4. Hypovolemic hyponatremia. 5. Acute blood loss anemia. 6. Diabetes, type 2. HISTORY: The patient is an 88-year-old female who presented with a mechanical fall, suffering a left hip fracture. She was seen by Dr. Merino and underwent operative repair. She is to be touchdown weig htbearing per Orthopedic Surgery. Postoperative course was complicated by delirium associated with f ever, which was felt to be urinary tract infection in origin. Urine culture is pending at discharge. She has received antibiotics and will complete a course post-discharge. DISCHARGE MEDICATIONS: Please see computer record for full detailed list. New medications: 1. Lovenox 40 mg subcu daily for 10 more days. 2. Tramadol 50 mg p.o. q.6 hours as needed for pain. 3. Keflex 500 mg p.o. b.i.d. for 4 more days. ADDITIONAL DISCHARGE INSTRUCTIONS: 1. Toe-touch weightbearing left lower extremity at all times. 2. Lovenox 40 mg subcu daily for 14 days postoperatively followed by 14 days of 325 mg aspirin. 3. Follow up with Dr. Merino in 6 weeks. 4. Staple removal 10-14 days postoperatively. 5. Urine culture pending at discharge. Please contact [facility] for final cult ure result. Greater than 30 minutes' time spent arranging this discharge. Patient seen and examined by me on the date of discharge. /[id number]/MODL
== END 2018-03-05 13:49 | DRG 480 ==
LOC: EDUNIT# → F3N 10:09
PROVIDERS: ADMIT Internal Medicine; ATTEND Internal Medicine
PROC: 0QPC04Z Removal of Internal Fixation Device from Left Lower Femur, Open Approach (ICD-10-PCS; principal; 2018-03-01 12:00)
PROC: 0QSC06Z Reposition Left Lower Femur with Intramedullary Internal Fixation Device, Open Approach (ICD-10-PCS; principal; 2018-03-01 12:00)
DX: S72.142A Displaced intertrochanteric fracture of left femur, initial encounter for closed fracture (principal); W19.XXXA Unspecified fall, initial encounter; Y92.199 Unspecified place in other specified residential institution as the place of occurrence of the external cause; G93.40 Encephalopathy, unspecified; D62 Acute posthemorrhagic anemia; E87.1 Hypo-osmolality and hyponatremia; N39.0 Urinary tract infection, site not specified; E11.9 Type 2 diabetes mellitus without complications; I10 Essential (primary) hypertension; M17.11 Unilateral primary osteoarthritis, right knee; Z96.651 Presence of right artificial knee joint; Z87.81 Personal history of (healed) traumatic fracture
CPT/HCPCS: 96374; 97162-GP; 97166-GO; 97530-GO; 97530-GP; 97535-GO; C1713; C1769; G8978-GP-CM; G8979-GP-CK; G8987-GO-CM; G8988-GO-CK; J0171; J0690; J0696; J1170; J1650; J2270; J2370; J2405; J2704; J2765; J3010

== ENCOUNTER 2018-05-19 16:16 | Emergency (ER) | payer OTHER, MEDICARE ==
--- NOTE | 2018-05-19 16:29 | EDPHY ---
H & P Stated Complaint: Fell Saturday night; pain L lateral rib area;recent dx/tx for UTI Time Seen by Provider: 05/19/18 16:29 - Personal History Current Tetanus Diphtheria and Acellular Pertussis (TDAP): Yes Tetanus Vaccine Date: 2011 - Medical/Surgical History Hx Asthma: No Hx Chronic Respiratory Disease: No Hx Diabetes: Yes Hx Cardiac Disease: Yes Hx Renal Disease: No Hx Cirrhosis: No Hx Alcoholism: No Hx HIV/AIDS: No Hx Splenectomy or Spleen Trauma: No Other PMH: medical- DM, HTN, HLD, osteoperosis, chronic back pain, macular degeneration. surgical- appy, LEFT Femur ORIF; LEFT TKR, L hip replacement - Social History Smoking Status: Former smoker Constitutional: Initial Vital Signs Temperature (C) 36.7 C 05/19/18 16:17 Heart Rate 72 05/19/18 16:17 Respiratory Rate 18 05/19/18 16:17 Blood Pressure 192/81 H 05/19/18 16:17 O2 Sat (%) 94 05/19/18 16:17 O2 Delivery Mode Room Air Allergies/Adverse Reactions: hydrocodone [From Aspers] Allergy (Verified 05/19/18 16:17) Other-Enter Comments levofloxacin [From Levaquin] Allergy (Verified 05/19/18 16:17) Hives Penicillins Allergy (Verified 05/19/18 16:17) Hives Home Medications: Medication Instructions Recorded Acetaminophen [Tylenol 325mg (*)] 650 mg PO Q4 PRN 03/01/18 FLUoxetine [Prozac 20 MG (*)] 20 mg PO HS 03/01/18 Famotidine [Pepcid 20 MG (*)] 20 mg PO DAILY PRN 03/01/18 Losartan Potassium [Cozaar 50 mg 50 mg PO BID 03/01/18 (*)] Pregabalin [Lyrica 100mg (*)] 100 mg PO HS 03/01/18 Tears/Dextran 70/Hypromellose 1 drop EACHEYE Q2 PRN 03/01/18 [Natural Balance Tears (*)] amLODIPine BESYLATE [Norvasc 2.5 2.5 mg PO BID 03/01/18 mg (*)] traMADol HCL [Ultram] 50 mg PO Q6 PRN #20 tablet 03/05/18 Antibiotic For Uti 05/19/18 Lidocaine [Lidoderm] 1 each TP DAILY #10 adh..patch 05/19/18 traMADol HCL [Ultram] 50 mg PO DAILY PRN #7 tablet 05/19/18 Medical Decision Making - Diagnostics Imaging Results: Imaging Impressions Ribs w/Chest X-Ray 05/19/18 16:36 Impression: Probable acute nondisplaced anterior left 6th and 7th rib fractures. Findings discussed with Serjio Beth MD 05/19/2018 at 1710. Imaging: Discussed imaging studies w/ rn call center Radiologist, I viewed and interpreted images myself ED Course/Re-evaluation: CHIEF COMPLAINT: Fall HISTORY OF PRESENT ILLNESS: This patient is a pleasant 88 year old female who presents following a mechanical fall on Saturday night. She states she tripped on a carpet and fell onto her left side. She now complains of left posterior rib pain. She was recently treated for a UTI, but states she was and remains asymptomatic and that her fall was purely mechanical. She denies any chest pain, shortness of breath, dizziness, lightheadedness, or other symptoms prior to the event. She had a recent hip surgery following another mechanical fall, but currently does not complain of any hip pain. The patient denies striking her head or any loss of consciousness. She has no further complaints at this time. REVIEW OF SYSTEMS: A comprehensive 10 system review of systems is otherwise negative aside from elements mentioned in the history of present illness and medical decision making. PHYSICAL EXAM: HR, BP, O2 Sat, RR. Temp noted General Appearance: Alert, well hydrated, appropriate, and non-toxic appearing. Head: Atraumatic without scalp tenderness or obvious injury Eyes: Pupils equal, round, reactive to light and accommodation, EOMI, no trauma , no injection. Ears: Clear bilaterally, no perforation, normal landmarks Nose: Atraumatic, no rhinorrhea, clear. Throat: There is no erythema or exudates, no lesions, normal tonsils, mucus membranes moist. Neck: Supple, nontender, no lymphadenopathy. Respiratory: No retractions, no distress, no wheezes, and no accessory muscle use. Lungs are clear to auscultation bilaterally. Cardiovascular: Regular rate and rhythm, no murmurs, rubs, or gallops. Bilateral carotid, radial, dorsalis pedis, and posterior tibial pulses intact. Good capillary refill all extremities. Gastrointestinal: Abdomen is soft, nontender, non-distended, no masses, no rebound, no guarding, no peritoneal signs. Musculoskeletal: Tenderness over left lateral ribs. Normal active ROM of all extremities, atraumatic. Neurological: Alert, appropriate, and interactive. Nonfocal neuro exam. Skin: No rashes, good turgor, no nodules on palpation. Past medical history: Diabetes mellitus, hypertension, hyperlipidemia, osteoporosis, chronic back pain, macular degeneration. Past surgical history: Appendectomy, orthopedic surgeries including left hip replacement. Family history: Noncontributory Social history: Daughter at bedside. Lives at [facility]. Retired. DIFFERENTIAL DIAGNOSIS: The differential diagnosis for the patient's trauma included but was not limited to intracranial injury, long bone and pelvic bone fractures, spinal injury, intra-abdominal injury, and intra-thoracic injury. MEDICAL DECISION MAKING: This 88 y/o female presents with left lateral and posterior rib pain secondary to a mechanical fall two days ago. The patient has tenderness over this painful area on exam. Plan for x-ray left ribs for further evaluation. 17:[address] Valencia, radiologist. Evidence of nondisplaced 6th and 7th rib fractures. Multiple old rib fractures are noted as well bilaterally. 17:15 Reassessed patient. Discussed imaging results. Plan to discharge home in good condition with incentive spirometer. Discussed pain control methods including lidocaine patch. I will provide a prescription for Tramadol, which the patient states has worked well for her in the past. Follow up and return precautions discussed. The patient is comfortable with this plan. - Data Points Medications Given: Discontinued Medications Miscellaneous Medication (Icy Hot Lidocaine/Menthol 4%/1% Patch) 1 patch TD EDNOW ONE Stop: 05/19/18 16:40 Last Admin: 05/19/18 17:02 Dose: 1 patch Departure - Departure Disposition: Home, Routine, Self-Care Clinical Impression: Left rib fracture Qualifiers: Encounter type: initial encounter Rib fracture type: single rib Fracture type: closed Qualified Code(s): S22.32XA - Fracture of one rib, left side, initial encounter for closed fracture Fall Qualifiers: Encounter type: initial encounter Qualified Code(s): W19.XXXA - Unspecified fall, initial encounter Condition: Good Instructions: Rib Fracture (ED), Fall Prevention (ED) Additional Instructions: Follow up with your primary doctor in 2-3 days. Use incentive spirometer as directed several times daily. Take Tramadol as prescribed as needed for severe pain. You can use lidocaine patches as directed as needed for pain. Return to the emergency department for fever, worsening pain, shortness of breath or difficulty breathing, abdominal pain, blood in urine or other concerns. Referrals: Rosa Capellan MD [Primary Care Provider] - As per Instructions Prescriptions: Lidocaine [Lidoderm] 1 each TP DAILY #10 adh..patch traMADol HCL [Ultram] 50 mg PO DAILY PRN #7 tablet PRN Reason: Pain, Moderate Report Scribed for: Serjio Beth Report Scribed by: Trisha Alva Date of Report: 05/19/18 Time of Report: 17:21
[2018-05-19] MEDS ORDERED: LIDOCAINE 4%/MENTHOL 1% PATCH TD ONE (16:39)
[2018-05-19 17:34] VITALS: BP 165/99
[2018-05-19] MEDS ORDERED: PATCH REMOVAL 1 EA PATCH TD SCH (21:00)
== END 2018-05-19 17:39 | disposition home or self-care (01) ==
DX: S22.42XA Multiple fractures of ribs, left side, initial encounter for closed fracture (principal); W01.0XXA Fall on same level from slipping, tripping and stumbling without subsequent striking against object, initial encounter; Y99.8 Other external cause status; Z91.81 History of falling; Z87.440 Personal history of urinary (tract) infections; Z96.642 Presence of left artificial hip joint; Z98.890 Other specified postprocedural states